=== PATIENT | female | born 1975 | race Caucasian/White ===

== ENCOUNTER 2019-04-04 19:40 | Emergency (ER) | payer SELFPAY ==
[2019-04-04 20:00] VITALS: BMI 37.3
[2019-04-04] MEDS ORDERED: Sodium Chloride 0.9% 1,000 ML IV STA (20:22)
--- NOTE | 2019-04-04 20:24 | ED PDOC ---
HPI: General Adult Time Seen by Provider: 04/04/19 20:22 Chief Complaint (Nursing): Fever Chief Complaint (Provider): fever History Per: Patient (43 y/o female here with fever x 2 days intermittent. Deneis any cough/uri/vomiting/diarrhea/dysuria. Notes pain left side of chest/back with inspiration. No ill contacts noted. Has h/o cxn otherwise no other surgeries. Took motrin 500mg 2 hours prior to ED arrival.) Past Medical History Reviewed: Historical Data, Nursing Documentation, Vital Signs Vital Signs: Last Vital Signs Temp 101.9 F H 04/04/19 19:57 Pulse 109 H 04/04/19 19:57 Resp 18 04/04/19 19:57 BP 117/76 04/04/19 19:57 Pulse Ox 98 04/04/19 19:57 Primary Care Provider: Procedure,Nonphys - Family History Family History: States: No Known Family Hx - Allergies Allergies/Adverse Reactions: Allergies Allergy/AdvReac Type Severity Reaction Status Date / Time No Known Allergies Allergy Verified 09/20/13 18:41 Review of Systems ROS Statement: Except As Marked, All Systems Reviewed And Found Negative Physical Exam - Reviewed Nursing Documentation Reviewed: Yes Vital Signs Reviewed: Yes - Physical Exam Appears: Positive for: Well, Non-toxic, No Acute Distress Head Exam: Positive for: ATRAUMATIC, NORMAL INSPECTION, NORMOCEPHALIC Skin: Positive for: Normal Color, Warm, DRY Eye Exam: Positive for: EOMI, Normal appearance, PERRL ENT: Positive for: Normal ENT Inspection Neck: Positive for: Normal, Painless ROM, Supple (no nuchal rigidity noted.) Cardiovascular/Chest: Positive for: Regular Rate, Rhythm Respiratory: Positive for: CNT, Normal Breath Sounds Gastrointestinal/Abdominal: Positive for: Normal Exam, Soft Back: Positive for: Normal Inspection Extremity: Positive for: Normal ROM Neurological/Psych: Positive for: Awake, Alert, Normal Tone - ECG O2 Sat by Pulse Oximetry: 98 Disposition - Clinical Impression Clinical Impression: Fever in adult - Patient ED Disposition Is Patient to be Admitted: Transfer of Care - Disposition Disposition: Transfer of Care Disposition Time: 20:24 Condition: FAIR Patient Signed Over To: Shandra Hernandez Handoff Comments: pending bloodwork/cxr/ua/re-eval
[2019-04-04 21:21] LABS: VENOUS BLOOD GAS BASE EXCESS 1.7 mmol/L (0.0-2.0); VENOUS BLOOD GAS PCO2 30 mmHg (40-60); VENOUS BLOOD GAS PO2 49 mm/Hg (30-55); VENOUS BLOOD PH 7.51 (7.32-7.43)
[2019-04-04 21:28] LABS: BASO % 0.1 % (0.0-2.0); HEMOGLOBIN 10.6 g/dL (12.0-16.0); LYMPH # 1.1 K/uL (1.0-4.3); LYMPH % 10.9 % (20.0-40.0); MEAN CELL VOLUME 85.2 fl (81.0-99.0); MEAN CORPUSCULAR HEMOGLOBIN 28.3 pg (27.0-31.0); MEAN CORPUSCULAR HGB CONC 33.2 g/dL (33.0-37.0); MONO # 1.4 K/uL (0.0-0.8); MONO % 13.7 % (0.0-10.0); NEUT # 7.5 K/uL (1.8-7.0); NEUT % 75.3 % (50.0-75.0); NRBC % 0.1 % (0.0-0.0); RBC 3.73 Mil/uL (3.80-5.20); RED CELL DISTRIBUTION WIDTH 14.9 % (11.5-14.5); WHITE BLOOD COUNT 9.9 K/uL (4.8-10.8)
[2019-04-04 21:34] LABS: ALB/GLOB RATIO 1.1 (1.0-2.1); ALBUMIN 4.3 g/dL (3.5-5.0); ALT/SGPT 55 U/L (9-52); AST/SGOT 71 U/L (14-36); BLOOD UREA NITROGEN 9 mg/dl (7-17); CALCIUM 8.9 mg/dL (8.4-10.2); GFR NON-AFRICAN AMERICAN > 60; LIPASE 21 U/L (23-300)
[2019-04-04 21:38] LABS: SQUAMOUS EPITHIAL 3 /hpf (0-5); URINE BILIRUBIN NEGATIVE (NEGATIVE); URINE BLOOD NEGATIVE (NEGATIVE); URINE CLARITY SLIGHTY-CLOUDY (Clear); URINE COLOR YELLOW (YELLOW); URINE GLUCOSE (UA) NEG (NEGATIVE); URINE LEUKOCYTE ESTERASE MOD Leu/uL (Negative); URINE PROTEIN 30 mg/dL (NEGATIVE); URINE UROBILINOGEN 0.2-1.0 mg/dL (0.2-1.0)
[2019-04-04] MEDS ORDERED: cefTRIAXone 1,000 MG in PED IV SYRINGE 1 SYR IV STA (22:16)
[2019-04-04] MEDS ORDERED: cefTRIAXone (Rocephin) 1 gm Inj ONE (22:39)
--- NOTE | 2019-04-04 23:53 | ED PDOC ---
- Laboratory Results Result Diagrams: 04/04/19 20:45 04/04/19 20:45 Lab Results: pO2 49 mm/Hg (30-55) 04/04/19 21:17 VBG pH 7.51 (7.32-7.43) H 04/04/19 21:17 VBG pCO2 30 mmHg (40-60) L 04/04/19 21:17 VBG HCO3 26.0 mmol/L 04/04/19 21:17 VBG Total CO2 24.8 mmol/L (22-28) 04/04/19 21:17 VBG O2 Sat (Calc) 91.5 % (40-65) H 04/04/19 21:17 VBG Base Excess 1.7 mmol/L (0.0-2.0) 04/04/19 21:17 VBG Potassium 4.0 mmol/L (3.6-5.2) 04/04/19 21:17 Sodium 135.0 mmol/L (132-148) 04/04/19 21:17 Chloride 107.0 mmol/L (98-107) 04/04/19 21:17 Glucose 135 mg/dL (65-105) H 04/04/19 21:17 Lactate 1.0 mmol/L (0.7-2.1) 04/04/19 21:17 FiO2 21.0 % 04/04/19 21:17 Total Bilirubin 0.5 mg/dl (0.2-1.3) 04/04/19 20:45 AST 71 U/L (14-36) H 04/04/19 20:45 ALT 55 U/L (9-52) H 04/04/19 20:45 Alkaline Phosphatase 145 U/L (38-126) H 04/04/19 20:45 Total Protein 8.1 G/DL (6.3-8.2) 04/04/19 20:45 Albumin 4.3 g/dL (3.5-5.0) 04/04/19 20:45 Globulin 3.8 gm/dL (2.2-3.9) 04/04/19 20:45 Albumin/Globulin Ratio 1.1 (1.0-2.1) 04/04/19 20:45 Lipase 21 U/L (23-300) L 04/04/19 20:45 Urine Color Yellow (YELLOW) 04/04/19 20:45 Urine Clarity Slighty-cloudy (Clear) 04/04/19 20:45 Urine pH 8.0 (5.0-8.0) 04/04/19 20:45 Ur Specific [place] 1.008 (1.003-1.030) 04/04/19 20:45 Urine Protein 30 mg/dL (NEGATIVE) 04/04/19 20:45 Urine Glucose (UA) Neg mg/dL (NEGATIVE) 04/04/19 20:45 Urine Ketones Negative mg/dL (NEGATIVE) 04/04/19 20:45 Urine Blood Negative (NEGATIVE) 04/04/19 20:45 Urine Nitrate Negative (NEGATIVE) 04/04/19 20:45 Urine Bilirubin Negative (NEGATIVE) 04/04/19 20:45 Urine Urobilinogen 0.2-1.0 mg/dL (0.2-1.0) 04/04/19 20:45 Ur Leukocyte Esterase Mod [place]/uL (Negative) 04/04/19 20:45 Urine RBC (Auto) 1 /hpf (0-3) 04/04/19 20:45 Urine Microscopic WBC 37 /hpf (0-5) H 04/04/19 20:45 Ur Squamous Epith Cells 3 /hpf (0-5) 04/04/19 20:45 - ECG O2 Sat by Pulse Oximetry: 98 Pulse Ox Interpretation: Normal Medical Decision Making Medical Decision Makin yo female with fever and left sided pain, no cva tenderness endorsed pending labs and re-evaluation. Urine (+) wbc. Rocephin IV given in ER for UTI. Repeat vitals. Disposition - Clinical Impression Clinical Impression: Fever in adult, UTI (urinary tract infection) - POA Present On Arrival: None - Disposition Disposition: Routine/Home Disposition Time: 00:50 Condition: GOOD Prescriptions: Ciprofloxacin [Cipro] 500 mg PO BID #14 tab Instructions: Kidney Infection Forms: [facility] (Japanese)
[2019-04-05 00:35] VITALS: BP 114/61; PULSE 74; RESP 16; TEMP 97.7
[2019-04-05 00:51] VITALS: O2SAT 98
--- NOTE | 2019-04-05 16:54 | RAD ---
Date of service: 04/04/2019 HISTORY: cp/fever COMPARISON: No prior. TECHNIQUE: Chest PA and lateral views FINDINGS: LUNGS: No active pulmonary disease. PLEURA: No significant pleural effusion identified. No pneumothorax apparent. CARDIOVASCULAR: No aortic atherosclerotic calcification present. Borderline cardiomegaly. No pulmonary vascular congestion. OSSEOUS STRUCTURES: No significant abnormalities. VISUALIZED UPPER ABDOMEN: Normal. OTHER FINDINGS: None. IMPRESSION: Borderline cardiomegaly. No pulmonary vascular congestion or acute pulmonary disease appreciable.
== END 2019-04-05 01:07 | disposition home or self-care (01) ==
LOC: H.ER 19:40
DX: R50.9 Fever, unspecified (principal); N39.0 Urinary tract infection, site not specified
CPT/HCPCS: 71046; 80053; 81003; 81025; 82803; 83690; 85025; 87040; 87070; 87086; 87430; 87804; 99284; J0696; J7030